=== PATIENT | female | born 1950 | race African-American/Black ===

== ENCOUNTER 2021-05-23 08:08 | Emergency (ER) | payer OTHER ==
[~2021-05-23] VITALS: Ht 167.6 cm; Wt 75.0 kg
[2021-05-23] MEDS ORDERED: [UNRECOGNIZED DRUG - OTHER] (08:19)
[2021-05-23] MEDS ORDERED: DILTIAZEM HCL 30MG TABLET PO ONE (08:30)
[2021-05-23] MEDS ORDERED: KETOROLAC 60MG/2ML VIAL IM ONE (08:30)
[2021-05-23] MEDS ORDERED: IBUP-2028 MT (08:36)
[2021-05-23] MEDS ORDERED: IBUPROFEN 600MG TABLET PO ONE (08:45)
[2021-05-23 11:45] VITALS: BP 173/78
== END 2021-05-23 11:54 | disposition home or self-care (01) ==
LOC: ER 08:08
DX: M54.50 Low back pain, unspecified (principal); I10 Essential (primary) hypertension
CPT/HCPCS: 72100; 72131; 99284